=== PATIENT | male | born 1950 | race Hispanic/Latino ===

== ENCOUNTER 2019-01-21 05:37 | Emergency (ER) | payer OTHER | END 2019-01-21 08:06 | disposition home or self-care (01) | LOC: EDH 05:37 | DX: M79.675 Pain in left toe(s) (principal); E11.9 Type 2 diabetes mellitus without complications; Z53.21 Procedure and treatment not carried out due to patient leaving prior to being seen by health care provider; Z90.49 Acquired absence of other specified parts of digestive tract; Z87.891 Personal history of nicotine dependence ==

== ENCOUNTER 2020-10-20 02:00 | Emergency (ER) | payer OTHER ==
[2020-10-20] MEDS ORDERED: ONDA4TAB4 PO (13:26)
[2020-10-20] MEDS ORDERED: LEVO750T46 PO (13:26)
[2020-10-20] MEDS ORDERED: FAMO-136 PO (13:26)
== END 2020-10-20 08:27 | disposition left against medical advice (07) ==
LOC: EDH 02:00
DX: R53.1 Weakness (principal); R42 Dizziness and giddiness; Z53.21 Procedure and treatment not carried out due to patient leaving prior to being seen by health care provider

== ENCOUNTER 2020-10-20 09:11 | Emergency (ER) | payer OTHER ==
[~2020-10-20] VITALS: Ht 167.6 cm; Wt 77.6 kg
[2020-10-20 09:13] VITALS: BP 122/65
[2020-10-20] MEDS ORDERED: 0.9%NACL 1000ML 1,000 ML IV ONE (10:45)
[2020-10-20 10:54] LABS: APPEARANCE,URINE Clear (CLEAR); BILIRUBIN,URINE Negative (NEGATIVE); COLOR,URINE Yellow (YELLOW); GLUCOSE, URINE (UA) Negative (NEGATIVE); KETONES,URINE Trace mg/dL (NEGATIVE); LEUKOCYTE ESTERASE ,URINE Negative (NEGATIVE); NITRATE,URINE Negative (NEGATIVE); OCCULT BLOOD,URINE Negative (NEGATIVE); PROTEIN,URINE Negative (NEGATIVE); UROBILINOGEN,URINE 0.2 mg/dL (0.2-1.0)
[2020-10-20 10:59] LABS: BASOPHILS % (AUTO) 0.6 % (0.0-5.0); EOSINOPHILS % (AUTO) 0.2 % (0.0-8.0); LYMPHOCYTES % (AUTO) 18.9 % (21.0-51.0); MEAN CORPUSCULAR HEMOGLOBIN 31.2 pg (27.0-33.0); MEAN CORPUSCULAR VOLUME 89.2 fL (79-99); MONOCYTES % (AUTO) 9.3 % (3.0-13.0); NEUTROPHILS % (AUTO) 70.8 % (40.0-77.0); PLATELET COUNT (AUTO) 166 K/uL (130-400); RED BLOOD CELL COUNT(AUTO) 4.26 MIL/uL (4.50-6.20); RED CELL DISTRIBUTION WIDTH 12.2 % (11.0-15.5); WHITE BLOOD COUNT (AUTO) 5.2 K/uL (4.8-10.8)
[2020-10-20 11:12] LABS: ALBUMIN 3.7 g/dL (3.5-5.0); BILIRUBIN,TOTAL 0.9 mg/dL (0.2-1.0); POTASSIUM 3.6 mmol/L (3.5-5.1); TOTAL PROTEIN, SERUM 7.3 g/dL (6.0-8.3)
[2020-10-20 11:19] LABS: BACTERIA,URINE None Seen /HPF (None Seen); RBC,URINE None Seen /HPF (0-1); SQUAMOUS EPITHELIAL CELL,UR Few /HPF (0-2); WBC,URINE None Seen /HPF (0-1)
[2020-10-20] MEDS ORDERED: KETOROLAC 15MG/ML VIAL (15MG/ML) IV ONE (12:45)
[2020-10-20] MEDS ORDERED: FAMOTIDINE 20MG VIAL IV STA (12:54)
[2020-10-20] MEDS ORDERED: ONDANSETRON 4MG INJ IVP STA (12:54)
[2020-10-20] MEDS ORDERED: LEVOFLOXACIN 500 MG TABLET PO STA (12:54)
[2020-10-20] MEDS ORDERED: ONDA4TAB4 PO (13:26)
[2020-10-20] MEDS ORDERED: LEVO750T46 PO (13:26)
[2020-10-20] MEDS ORDERED: FAMO-136 PO (13:26)
[2020-10-20 14:14] VITALS: BP 126/76
== END 2020-10-20 14:03 | disposition home or self-care (01) ==
LOC: EDH 09:11
DX: R19.7 Diarrhea, unspecified (principal); R11.2 Nausea with vomiting, unspecified; R10.9 Unspecified abdominal pain; M79.10 Myalgia, unspecified site; E11.9 Type 2 diabetes mellitus without complications; E78.5 Hyperlipidemia, unspecified; Z90.49 Acquired absence of other specified parts of digestive tract; F43.10 Post-traumatic stress disorder, unspecified
CPT/HCPCS: 36415; 80053; 81001; 82150; 83690; 85025; 93005; 96361; 96374; 96375; 99284; J1885; J2405; J3490; J7030